=== PATIENT | female | born 1990 | race Caucasian/White ===

== ENCOUNTER 2019-04-08 11:40 | Inpatient (IN) | payer OTHER ==
[2019-04-08] MEDS ORDERED: Docusate 100 MG CAP PO PRN (11:51)
[2019-04-08] MEDS ORDERED: hydrALAZINE 20 MG/ML VIAL SLOW IVP PRN ×2 (11:51→18:57)
[2019-04-08] MEDS ORDERED: Promethazine HCl 25 MG/ML VIAL IM PRN (11:51)
[2019-04-08] MEDS ORDERED: Ibuprofen 800 MG TAB PO PRN (11:51)
[2019-04-08] MEDS ORDERED: Diphenoxylate HCl/Atropine Tablet PO PRN ×2 (11:51)
[2019-04-08] MEDS ORDERED: Butorphanol Tartrate 1 MG/ML VIAL SLOW IVP PRN (11:51)
[2019-04-08] MEDS ORDERED: NS / Oxytocin 40 units/1000ml 1,000 ML IV PRN (11:51)
[2019-04-08] MEDS ORDERED: HYDROcodone/Acetaminophen 5/325 mg Tablet PO PRN ×2 (11:51)
[2019-04-08] MEDS ORDERED: Acetaminophen 500 MG TAB PO PRN (11:51)
[2019-04-08] MEDS ORDERED: Ondansetron PF 4 MG/2 ML Vial IVP PRN ×2 (11:51→18:57)
[2019-04-08] MEDS ORDERED: Lidocaine 1% (PF) 30 ML VIAL SC PRN (11:51)
[2019-04-08] MEDS ORDERED: Misoprostol 200 MCG TAB PR PRN (11:51)
[2019-04-08] MEDS: Lactated Ringer's 1,000 ML IV SCH (12:00)
[2019-04-08] MEDS ORDERED: Penicillin G Potassium 5 MILL.UNITS in Sodium Chloride 0.9% 100 ML IVPB SCH (12:00)
[2019-04-08] MEDS ORDERED: Penicillin G Potassium 5 MILL.UNITS VIAL ONE (12:01)
[2019-04-08 12:34] VITALS: BMI 33.0
[2019-04-08 12:47] LABS: Hemoglobin 10.1 g/dL (12.0-16.0); Mean Corpuscular Volume 78.8 fL (78.0-98.0); Mean Platelet Volume 6.2 fL (7.4-10.4); Platelet Count 256 thou/uL (130-400); RBC Distribution Width 12.8 % (11.5-14.5); Red Blood Cell (RBC) Count 3.88 mill/uL (4.20-5.40); White Blood Cell (WBC) Count 8.1 thou/uL (4.8-10.8)
[2019-04-08 13:36] LABS: HBSAg Index 0.25 S/CO (0-0.99); Hep B Surf Ag Non-Reactive S/CO (NonReactive); Syphilis Antibody Nonreactive (Nonreactive); Syphilis Antibody Index 0.07 S/CO (<1.00 Non-Reactive)
[2019-04-08] MEDS: Penicillin G 2.5 MILL.units 2.5 MILL.UNITS in Premix Bag 1 BAG IVPB SCH (15:55)
[2019-04-08] MEDS ORDERED: Acetaminophen/Codeine 30-300mg Tablet PO PRN ×2 (18:57)
[2019-04-08] MEDS ORDERED: Misoprostol 200 MCG TAB VAG PRN (18:57)
[2019-04-08] MEDS ORDERED: Zolpidem Tartrate 5 MG TAB PO PRN (18:57)
[2019-04-08] MEDS ORDERED: diphenhydrAMINE 25 MG CAP PO PRN (18:57)
[2019-04-08] MEDS ORDERED: Benzocaine-Menthol 82.5 ML CAN TOP PRN (18:57)
[2019-04-08] MEDS ORDERED: Preparation H Ointment 57 gram tube RC PRN (18:57)
[2019-04-08] MEDS ORDERED: Milk Of Magnesia 30 ML UDCUP PO PRN (18:57)
[2019-04-08] MEDS ORDERED: Bisacodyl 10 MG SUPP PR PRN (18:57)
[2019-04-08] MEDS ORDERED: Lanolin Ointment 7 GM TUBE TOP PRN (18:57)
[2019-04-08] MEDS ORDERED: NS / Oxytocin 40 units/1000ml 1,000 ML IV SCH (19:00)
[2019-04-08] MEDS: Docusate Calcium (SURFAK) 240 MG CAP PO SCH (21:35)
[2019-04-08] MEDS ORDERED: Ibuprofen 800 MG TAB PO SCH (22:00)
[2019-04-08] MEDS ORDERED: Acetaminophen/Codeine 120-12MG/5 ML UDCUP PO PRN ×3 (22:31→22:55)
[2019-04-08] MEDS ORDERED: diphenhydrAMINE 12.5 MG/5 ML UDCUP PO PRN (22:34)
[2019-04-08] MEDS ORDERED: Misoprostol 200 MCG TAB PO SCH (22:45)
[2019-04-08] MEDS ORDERED: Misoprostol 200 MCG TAB PR SCH (22:45)
--- NOTE | 2019-04-08 23:01 | PDOC.BPN ---
- Brief Progress Note To room for evaluation of vaginal bleeding. Pt s/p with passage of multiple "mandarin orange size" clots. No apparent active bleeding on exam. Manual removal of small amount of clot from lower uterine segment. Uterus firm. Perineal exam with small 2nd degree laceration but appears hemostatic. Will order TXA x 1 and continue pad counts.
[2019-04-08] MEDS ORDERED: Tranexamic Acid 1,000 MG in Sodium Chloride 0.9% 250 ML 250 ML IVPB SCH (23:59)
[2019-04-09] MEDS: Lactated Ringer's 1,000 ML IV SCH (00:32)
[2019-04-09] MEDS: Penicillin G 2.5 MILL.units 2.5 MILL.UNITS in Premix Bag 1 BAG IVPB SCH (00:32)
[2019-04-09] MEDS: Ibuprofen 100 MG/5 ML UDCUP PO SCH ×3 (05:58→22:03)
[2019-04-09 07:17] LABS: Hemoglobin 7.1 g/dL (12.0-16.0); Mean Corpuscular HGB CONC 31.1 g/dL (32.0-36.0); Mean Corpuscular Hemoglobin 24.3 pg (27.0-31.0); Mean Corpuscular Volume 78.3 fL (78.0-98.0); Mean Platelet Volume 5.7 fL (7.4-10.4); Platelet Count 243 thou/uL (130-400); Red Blood Cell (RBC) Count 2.93 mill/uL (4.20-5.40); White Blood Cell (WBC) Count 12.3 thou/uL (4.8-10.8)
[2019-04-09] MEDS: Docusate Calcium (SURFAK) 240 MG CAP PO SCH ×2 (08:46→21:59)
[2019-04-09] MEDS: Ferrous Sulfate 325 MG TAB PO SCH ×2 (08:46→18:33)
[2019-04-09] MEDS: Prenatal Vitamin 1 TAB PO SCH (08:46)
[2019-04-09] MEDS ORDERED: Adacel (T-DAP) 0.5 ML SYRINGE IM ONE (09:00)
[2019-04-09] MEDS: Acetaminophen/Codeine 120-12MG/5 ML UDCUP PO PRN (10:04)
[2019-04-10] MEDS: Ibuprofen 100 MG/5 ML UDCUP PO SCH (04:50)
[2019-04-10 08:20] VITALS: BP 101/55; TEMP 98.5
[2019-04-10] MEDS: Ferrous Sulfate 325 MG TAB PO SCH (09:22)
[2019-04-10] MEDS: Docusate Calcium (SURFAK) 240 MG CAP PO SCH (09:24)
[2019-04-10] MEDS: Prenatal Vitamin 1 TAB PO SCH (09:25)
[2019-04-10] MEDS: Acetaminophen/Codeine 120-12MG/5 ML UDCUP PO PRN (11:26)
--- NOTE | 2019-04-12 10:32 | PQF ---
Magdalene Ahuja KATIE [id number] CLINICAL DOCUMENTATION CLARIFICATION FORM: POST DISCHARGE Addendum to original discharge summary date: ____ Late entry note date: __ This patient's provider is Dr. Flako Urena. I only saw her for a single acute encounter and was unfamiliar prior to this, so he could probably better answer these questions. -KLBrading DATE:04/12/2019 ATTN:MARICARMEN NAVARRO Please exercise your independent, professional judgment in responding to the clarification form. Clinical indicators are provided on the bottom of this form for your review Please check appropriate box(s): [ ] Acute blood loss anemia [ ] Post-op anemia related to acute blood loss [ ] Other diagnosis [ ] Unable to determine In addition, please specify: Present on Admission (POA): [ ] Yes [ ] No [ ] Unable to determine For continuity of documentation, please document condition throughout progress notes and discharge summary. Thank You. 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 All Rights Reserved [employer]
== END 2019-04-10 13:30 | disposition home or self-care (01) | DRG 807 ==
LOC: L&D-LIB 11:40 → 3SW 21:35
PROVIDERS: ADMIT Obstetrics & Gynecology; ATTEND Obstetrics & Gynecology
PROC: 10E0XZZ Delivery of Products of Conception, External Approach (ICD-10-PCS; principal; 2019-04-08)
PROC: 10907ZC Drainage of Amniotic Fluid, Therapeutic from Products of Conception, Via Natural or Artificial Opening (ICD-10-PCS; 2019-04-08)
DX: O99.824 Streptococcus B carrier state complicating childbirth (principal); Z37.0 Single live birth; Z3A.37 37 weeks gestation of pregnancy; O70.1 Second degree perineal laceration during delivery; O72.1 Other immediate postpartum hemorrhage
CPT/HCPCS: 36415; 85027; 86780; 86850; 86900; 86901; 87340; J2540; J7050